=== PATIENT | male | born 1950 | race Caucasian/White ===

== ENCOUNTER 2018-09-10 10:59 | Emergency (ER) | payer MEDICARE, BC ==
[~2018-09-10] VITALS: Ht 167.6 cm; Wt 85.8 kg
[2018-09-10] MEDS ORDERED: aspirin 81mg tab.chew PO ONE (11:30)
[2018-09-10 11:38] LABS: HEMATOCRIT 52.1 % (42.0-52.0); HEMOGLOBIN 17.6 g/dl (14.0-17.9); MEAN CORPUSCULAR HEMOGLOBIN 29.7 PG (27.0-31.0); MEAN CORPUSCULAR HGB CONC 33.8 % (33.0-36.5); MEAN CORPUSCULAR VOLUME 88.1 FL (78-98); MEAN PLATELET VOLUME 7.4 FL (7.4-10.4); PLATELET COUNT 186 X10'3 (140-440); RED BLOOD COUNT 5.91 X10'6 (4.70-6.10); RED CELL DISTRIBUTION WIDTH 13.6 % (11.5-14.5); WHITE BLOOD COUNT 6.7 X10'3 (4.5-11.0)
[2018-09-10] MEDS ORDERED: diltiazem 5mg/ml 5ml inj. IV ONE (11:40)
[2018-09-10 11:51] VITALS: BP 130/55
[2018-09-10 11:53] LABS: PARTIAL THROMBOPLASTIN TIME 27 SECONDS (22-32)
[2018-09-10 11:55] LABS: ALANINE AMINOTRANSFERASE 25 U/L (12-78); ALBUMIN 3.7 G/DL (3.4-5.0); ALBUMIN/GLOBULIN RATIO 0.9 (1.1-1.5); ALKALINE PHOSPHATASE 75 IU/L (46-116); ANION GAP 10 (8-16); ASPARTATE AMINO TRANSFERASE 11 U/L (10-37); BILIRUBIN,TOTAL 0.3 MG/DL (0.1-1.0); BLOOD UREA NITROGEN 15 MG/DL (7-18); BUN/CREATININE RATIO 12.9 (5.4-32.0); CALCIUM 9.3 MG/DL (8.5-10.1); CHLORIDE 106 MMOL/L (99-107); CREATININE 1.16 MG/DL (0.60-1.10); GLUCOSE 150 MG/DL (70-104); POTASSIUM 4.5 MMOL/L (3.5-5.1); SODIUM 141 MMOL/L (135-145); TOTAL CARBON DIOXIDE 24.9 MMOL/L (24-32); TOTAL PROTEIN 7.7 G/DL (6.4-8.2); eGFR 63 ML/MIN
[2018-09-10 12:00] LABS: TOTAL CELLS COUNTED 100
[2018-09-10 12:01] LABS: PLATELET ESTIMATE NORMAL
== END 2018-09-10 12:48 | disposition home or self-care (01) ==
LOC: ER 11:00
DX: I48.91 Unspecified atrial fibrillation (principal); Z88.8 Allergy status to other drugs, medicaments and biological substances
CPT/HCPCS: 36415; 71045; 80053; 83735; 83880; 84484; 85025; 85610; 85730; 93005; 96374; 99284; J3490

== ENCOUNTER 2023-01-19 20:51 | Emergency (ER) | payer BC, MEDICARE ==
[~2023-01-19] VITALS: Ht 167.6 cm; Wt 86.2 kg
[2023-01-19] MEDS ORDERED: famotidine/PF 10 mg/ml inj IV ONE (22:50)
[2023-01-19] MEDS ORDERED: TETanus/Pertussis (Acell)/Diphther VAC/PF (Tdap-Adult) 0.5ml syringe IMVAC ONE (22:50)
[2023-01-19] MEDS ORDERED: triamcinolone acetonide 40mg/ml inj IM ONE (22:50)
[2023-01-19] MEDS ORDERED: normal saline 1000ml 1,000 ML IV ONE (22:50)
[2023-01-19] MEDS ORDERED: diphenhydrAMINE 50 mg/ml inj IV ONE (22:50)
[2023-01-19] MEDS ORDERED: ondansetron/PF 4mg/2ml inj IV ONE (22:50)
[2023-01-19] MEDS ORDERED: amox tr/potassium clavulanate 500mg/125mg TAB PO ONE (22:50)
[2023-01-19] MEDS ORDERED: methylPREDNISolone sod succ 125mg/2ml vial IV ONE (22:50)
[2023-01-20] MEDS ORDERED: AMOX-115 PO (01:11)
[2023-01-20 01:19] VITALS: BP 128/63
== END 2023-01-20 01:21 | disposition home or self-care (01) ==
LOC: ER 20:51
DX: K13.0 Diseases of lips (principal); R22.0 Localized swelling, mass and lump, head; I10 Essential (primary) hypertension; I48.91 Unspecified atrial fibrillation; Z88.8 Allergy status to other drugs, medicaments and biological substances; Z79.899 Other long term (current) drug therapy
CPT/HCPCS: 90471; 90715; 96372; 96374; 96375; 99284; J1200; J2405; J2930; J3301; J3490; J7030